=== PATIENT | female | born 1990 | race Caucasian/White ===

== ENCOUNTER 2020-02-07 09:55 | Outpatient (CLI) | payer OTHER, SELFPAY ==
[2020-02-07 10:16] VITALS: BP 146/83; PULSE 112
[2020-02-07 10:31] VITALS: BP 142/83; PULSE 101
[2020-02-07 10:33] LABS: Basophils Percent Auto 0.3 % (0.2-1.2); Eosinophils Absolute Auto 0.1 K/mm3 (0-0.3); Eosinophils Percent Auto 0.8 % (0-4.4); Hematocrit 34.3 % (37.0-47.0); Hemoglobin 11.3 g/dL (12.0-15.0); Immature Granulocyte Absolute 0.06 K/mm3 (0.00-0.031); Immature Granulocyte Percent A 0.6 % (0-0.5); Lymphocytes Absolute Auto 1.89 K/mm3 (0.9-3.2); Lymphocytes Percent Auto 19.2 % (18.3-44.2); Mean Corpuscular HGB Conc 32.9 g/dl (32-36); Mean Corpuscular Volume 85.1 fl (80-100); Mean Platelet Volume 9.9 fl (7.4-10.4); Monocytes Absolute Auto 0.8 K/mm3 (0.1-0.6); Monocytes Percent Auto 7.9 % (2.6-8.5); Neutrophils Percent Auto 71.2 % (45.5-73.1); Platelet Count Result 248 k/mm3 (150-375); Red Blood Count 4.03 M/mm3 (4.2-5.4); Red Cell Distribution Width 12.1 % (11.5-14.5); White Blood Count 9.8 K/mm3 (4.5-10.0)
[2020-02-07 10:43] LABS: Alanine Aminotransferase 11 U/L (4-35); Albumin Level 3.3 g/dL (3.5-5.1); Alkaline Phosphatase 137 U/L (38-126); Anion Gap 9 mmol/L (8-16); Aspartate Amino Transferase 20 U/L (14-36); Bilirubin,Total 0.3 mg/dL (0.2-1.3); Blood Urea Nitrogen 4 mg/dL (7-17); Calcium 9.2 mg/dL (8.4-10.2); Carbon Dioxide 22 mmol/L (22-30); Chloride 106 mmol/L (98-107); Estimated Glomerular Filt Rate > 60; Glucose 100 mg/dL (65-105); Potassium 4.1 mmol/L (3.4-5.0); Sodium 137 mmol/L (137-145)
[2020-02-07 10:46] VITALS: BP 139/81; PULSE 103
[2020-02-07 10:59] LABS: Add Urine Microscopic? YES; Appearance Urine Clear (Clear); Bacteria Urine Trace /hpf; Bilirubin Urine Negative (Negative); Blood Urine Negative (Negative); Color Urine Straw (Yellow); Glucose Urine UA Negative (Negative); Ketones Urine Negative (Negative); Leukocyte Esterase Ur Trace LEU/UL (NEGATIVE); Nitrate Urine Negative (Negative); Protein Urine Negative (Negative); RBC Urine 0-2 /hpf (0-2); Specific Grav Ur 1.008 (1.001-1.035); Squamous Epithelial Cell Urine Few /hpf (Few); Urobilinogen Urine Negative mg/dL (<2.0); WBC Urine 0-3 /hpf (0-3)
[2020-02-07 11:01] VITALS: BP 131/75; PULSE 97
[2020-02-07 11:07] LABS: Creatinine Urine 33.6 mg/dL; Total Protein Urine Random 14 mg/dL
--- NOTE | 2020-02-07 11:12 | PC.NURSE ---
Called Dr. Faye with lab results and BPs. August D/C home with 24hr urine.
[2020-02-07 11:36] VITALS: PULSE 102
== END 2020-02-07 11:22 | disposition home or self-care (01) ==
LOC: ANHOBOP 09:59 → ANHOBPP 10:00
PROVIDERS: PCP Internal Medicine; Visit Provider Student in an Organized Health Care Education/Training Program
DX: O13.9 Gestational [pregnancy-induced] hypertension without significant proteinuria, unspecified trimester (principal); Z3A.00 Weeks of gestation of pregnancy not specified
CPT/HCPCS: 36415; 59025; 80053; 81001; 82570; 84156; 84550; 85025; 87077; 87086; 87088; 87186; 99199

== ENCOUNTER 2020-02-08 12:19 | Outpatient (CLI) | payer OTHER, SELFPAY ==
[2020-02-08 12:50] VITALS: BP 121/76; PULSE 101
--- NOTE | 2020-02-08 13:08 | PC.NURSE ---
Sterile speculum exam performed. Whitish/ light yellow vaginal discharge noted. No pooling of fluid. No increase of fluid with coughing. Nitrazene negative. Slide prepared to check for ferning.
--- NOTE | 2020-02-08 13:09 | PC.NURSE ---
SVE- fingertip, thick, -2 station. No fluid noted in vagina when pressure applied against head.
--- NOTE | 2020-02-08 13:18 | PC.NURSE ---
Dr. Faye returned page and informed of pt c/o headache, spots in vision, and nausea. Pt also c/o leaking some fluid at 0530 this morning and again at 0630. We are out of ROM plus kits. Sterile speculum exam was performed- no pooling, nitrazene negative, slide prepared to check for ferning, but we don't have a microscope anymore. 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
[2020-02-08 13:30] VITALS: BP 131/77; PULSE 95; TEMP 36.4
[2020-02-08 13:36] VITALS: BMI 39.0
--- NOTE | 2020-02-08 13:36 | PC.NURSE ---
Dr. Faye in to see pt. Reviewed tracing and BP's. Order received for Tylenol. took microscope slide to office to view.
--- NOTE | 2020-02-08 13:40 | PC.NURSE ---
Dr. Faye called and stated the slide was negative for ferning. OK to discharge pt to home. Pt doesn't need to wait for 24 hr urine results.
[2020-02-08] MEDS: ACETAMINOPHEN 500 MG TABLET 1000 MG PO (13:44)
[2020-02-08 13:46] VITALS: BP 131/77; PULSE 115
[2020-02-08 14:14] LABS: Collection Time Urine 24 HOURS
[2020-02-08 14:25] LABS: Creatinine Urine 49.5 mg/dL; Patient Weight 220 Lbs
[2020-02-08 14:36] LABS: Creatinine Clearance Urine 207.4 ml/min (75-125); Specific Gravity Ur 1.005; Total Volume 24 Hour Urine 3500 ml
[2020-02-08 16:18] LABS: Total Protein Urine 24 Hr < 6 mg/24hr (0-149)
== END 2020-02-08 13:50 ==
LOC: ANHOBOP 13:26 → ANHOBPP 13:26
PROVIDERS: PCP Internal Medicine; Visit Provider Student in an Organized Health Care Education/Training Program
DX: O42.90 Premature rupture of membranes, unspecified as to length of time between rupture and onset of labor, unspecified weeks of gestation (principal); Z3A.00 Weeks of gestation of pregnancy not specified
CPT/HCPCS: 59025; 81050; 82575; 84156; 99199; A9270

== ENCOUNTER 2020-02-17 09:18 | Outpatient (RCR) | payer OTHER, SELFPAY ==
[2020-02-10 08:43] VITALS: BP 126/86; PULSE 115
[2020-02-13 09:48] VITALS: BP 131/80; PULSE 114
[2020-02-17 09:45] VITALS: BP 128/79; PULSE 99
== END 2020-03-20 09:56 | disposition home or self-care (01) ==
LOC: ANHOBOP 09:18
PROVIDERS: PCP Internal Medicine; Visit Provider Student in an Organized Health Care Education/Training Program
DX: O16.3 Unspecified maternal hypertension, third trimester (principal); Z3A.37 37 weeks gestation of pregnancy; Z3A.38 38 weeks gestation of pregnancy
CPT/HCPCS: 59025

== ENCOUNTER 2020-02-18 16:56 | Inpatient (IN) | payer OTHER, SELFPAY ==
[2020-02-18] VITALS (10 sets, daily range): BP systolic 127–145; BP diastolic 54–91; PULSE 104–128; TEMP 36.7; BMI 39.0
--- NOTE | 2020-02-18 17:22 | LDADM ---
This patient, Val Larsen, was admitted to Labor/Delivery/Recovery 108 on 02/18/20 at 16:56. Plans for labor, pain management and were discussed with patient. Patient/family oriented to hospital policies and general routines including ID bracelet, bed and alarms, visiting hours, pain management, procedures, bathroom and other care routines, personal items, smoking policy, room service/diet and guest tray routines, infant security routines, and visiting hours. Patient/Family are encouraged to report perceived risks to care and to ask questions if they do not understand what they are told or what they should do. See OBIX for further documentation.
[2020-02-18] MEDS: DINOPROSTONE 10 MG VAG INSERT VAGINAL (18:01)
[2020-02-18 18:10] LABS: Basophils Absolute Auto 0.1 K/mm3 (0.0-0.1); Basophils Percent Auto 0.5 % (0.2-1.2); Eosinophils Absolute Auto 0.1 K/mm3 (0-0.3); Eosinophils Percent Auto 0.8 % (0-4.4); Hematocrit 34.3 % (37.0-47.0); Hemoglobin 11.1 g/dL (12.0-15.0); Immature Granulocyte Absolute 0.09 K/mm3 (0.00-0.031); Immature Granulocyte Percent A 0.8 % (0-0.5); Lymphocytes Absolute Auto 2.48 K/mm3 (0.9-3.2); Lymphocytes Percent Auto 22.7 % (18.3-44.2); Mean Corpuscular HGB Conc 32.4 g/dl (32-36); Mean Corpuscular Hemoglobin 27.1 pg (26-34); Mean Corpuscular Volume 83.7 fl (80-100); Monocytes Percent Auto 9.3 % (2.6-8.5); Neutrophils Absolute Auto 7.2 K/mm3 (1.3-6.7); Neutrophils Percent Auto 65.9 % (45.5-73.1); Platelet Count Result 256 k/mm3 (150-375); Red Cell Distribution Width 12.4 % (11.5-14.5); White Blood Count 10.9 K/mm3 (4.5-10.0)
[2020-02-18] MEDS: CLINDAMYCIN 900 MG/D5W 50 ML 900 MG/50 ML PIGGYBACK 50 MG IVPB (18:40)
[2020-02-18 18:42] LABS: Alanine Aminotransferase 11 U/L (4-35); Albumin Level 3.5 g/dL (3.5-5.1); Alkaline Phosphatase 141 U/L (38-126); Anion Gap 9 mmol/L (8-16); Aspartate Amino Transferase 25 U/L (14-36); Bilirubin,Total 0.3 mg/dL (0.2-1.3); Blood Urea Nitrogen 8 mg/dL (7-17); Carbon Dioxide 22 mmol/L (22-30); Chloride 107 mmol/L (98-107); Estimated CRCL calculation 134 ml/min; Estimated Glomerular Filt Rate > 60; Glucose 83 mg/dL (65-105); Potassium 3.9 mmol/L (3.4-5.0); Sodium 138 mmol/L (137-145)
[2020-02-18] MEDS: ZOLPIDEM TARTRATE (*CRX) 5 MG TABLET PO (20:49)
[2020-02-18] MEDS: LABETALOL HCL 100 MG TABLET PO (20:49)
[2020-02-19] VITALS (127 sets, daily range): BP systolic 71–164; BP diastolic 36–85; PULSE 75–144; RESP 16–20; TEMP 36.6–37.1; O2SAT 97–100
--- NOTE | 2020-02-19 01:18 | WPDANESEPP ---
Anes - Eval Pre Procedure Procedure: Labor epidural Date/Time: 02/19/20 01:18 Surgeon: Yunier Preop Diagnosis: pain during labor Pre Op Diagnosis: Induction of Labor Patient Data Age: 29 Gender: F Height: 1.6 m Weight: 100 kg Last Vital Signs Temp 36.9 C 02/19/20 00:48 Pulse 114 H 02/19/20 01:00 BP 118/59 L 02/19/20 01:00 Allergies Allergy/AdvReac Type Severity Reaction Status Date / Time Penicillins Allergy Mild Rash Verified 02/02/20 12:30 Home Medications Medication Instructions Recorded Confirmed Type prenat.vits,diego,[id number] 1 tablet PO DAILY 02/02/20 02/18/20 History [ #2] ergocalciferol (vitamin D2) 50,000 unit PO WEEKLY 02/08/20 02/18/20 History [Vitamin D2] labetalol 100 mg PO BID 02/08/20 02/18/20 History Laboratory Tests 02/18/20 02/18/20 02/18/20 18:03 18:03 18:03 WBC 10.9 K/mm3 H K/mm3 (4.5-10.0) RBC 4.10 M/mm3 L M/mm3 (4.2-5.4) Hgb 11.1 g/dL L g/dL (12.0-15.0) Hct 34.3 % L % (37.0-47.0) MCV 83.7 fl fl (80-100) MCH 27.1 pg pg (26-34) MCHC 32.4 g/dl g/dl (32-36) RDW 12.4 % % (11.5-14.5) Plt Count 256 k/mm3 k/mm3 (150-375) MPV 10.0 fl fl (7.4-10.4) Immature Gran % (Auto) 0.8 % H % (0-0.5) Neut % (Auto) 65.9 % % (45.5-73.1) Lymph % (Auto) 22.7 % % (18.3-44.2) [place] % (Auto) 9.3 % H % (2.6-8.5) Eos % (Auto) 0.8 % % (0-4.4) Baso % (Auto) 0.5 % % (0.2-1.2) Lymph # (Auto) 2.48 K/mm3 K/mm3 (0.9-3.2) [place] # (Auto) 1.0 K/mm3 H K/mm3 (0.1-0.6) Eos # (Auto) 0.1 K/mm3 K/mm3 (0-0.3) Baso # (Auto) 0.1 K/mm3 K/mm3 (0.0-0.1) Abs Immat Gran (auto) 0.09 K/mm3 H K/mm3 (0.00-0.031) Absolute Neuts (auto) 7.2 K/mm3 H K/mm3 (1.3-6.7) Absolute Nucleated RBC 0.0 K/mm3 K/mm3 (0.0-0.012) Nucleated RBC % 0.0 % % (0.0-0.2) Sodium Potassium Chloride Carbon Dioxide Anion Gap BUN Creatinine Estim Creat Clear Calc Estimated GFR Glucose Calcium Total Bilirubin AST ALT Alkaline Phosphatase Total Protein Albumin RPR Pending Blood Type O Positive Antibody Screen Negative 02/18/20 18:03 WBC RBC Hgb Hct MCV MCH MCHC RDW Plt Count MPV Immature Gran % (Auto) Neut % (Auto) Lymph % (Auto) [place] % (Auto) Eos % (Auto) Baso % (Auto) Lymph # (Auto) [place] # (Auto) Eos # (Auto) Baso # (Auto) Abs Immat Gran (auto) Absolute Neuts (auto) Absolute Nucleated RBC Nucleated RBC % Sodium 138 mmol/L mmol/L (137-145) Potassium 3.9 mmol/L mmol/L (3.4-5.0) Chloride 107 mmol/L mmol/L (98-107) Carbon Dioxide 22 mmol/L mmol/L (22-30) Anion Gap 9 mmol/L mmol/L (8-16) BUN 8 mg/dL mg/dL (7-17) Creatinine 0.60 mg/dL L mg/dL (0.7-1.0) Estim Creat Clear Calc 134 ml/min ml/min Estimated GFR > 60 (59 - ) Glucose 83 mg/dL mg/dL (65-105) Calcium 10.0 mg/dL mg/dL (8.4-10.2) Total Bilirubin 0.3 mg/dL mg/dL (0.2-1.3) AST 25 U/L U/L (14-36) ALT 11 U/L U/L (4-35) Alkaline Phosphatase 141 U/L H U/L (38-126) Total Protein 7.0 g/dL g/dL (6.3-8.2) Albumin 3.5 g/dL g/dL (3.5-5.1) RPR Blood Type Antibody Screen Patient hx anesthesia problems: none Family hx anesthesia problems: none PMFSH Past Medical History Medical History (Updated 02/19/20 @ 01:20 by Terese Spencer CRNA) IUP (intrauterine ), incidental Obesity (BMI
[2020-02-19] MEDS: CLINDAMYCIN 900 MG/D5W 50 ML 900 MG/50 ML PIGGYBACK 50 MG IVPB ×2 (02:52→10:38)
[2020-02-19] MEDS: LACTATED RINGERS 1,000 ML 125 ML IV CONT ×2 (05:25→08:14)
[2020-02-19] MEDS: OXYTOCIN 30 UNITS/NS 500 ML 30 UNITS/500 ML BAG IV CONT (05:26)
[2020-02-19 07:10] LABS: Uric Acid 4.5 mg/dL (2.5-7.5)
--- NOTE | 2020-02-19 07:51 | PM.IMHP ---
H&P: HPI History of Present Illness Date/Time: 02/19/20 07:51 Chief complaint: Induction of Labor Narrative: Val Larsen is a 29 year old female 0-1 whose last menstrual period was 05/22/2019 EDC is 03/02/2020, presents at 37 and 6 7 weeks gestation for induction of labor. She has elevated blood pressures has been on labetalol she is spilling protein and mild headaches. In light of her early visit confirming dates and worsening blood pressures she is admitted for induction of labor. She is positive for group B strep in her urine and has been treated as such. Review of Systems Review of Systems: All systems reviewed & are unremarkable except as noted in HPI and below PMFSH Past Medical History Medical History IUP (intrauterine ), incidental Obesity (BMI 30-39.9) PIH ( induced hypertension) Family History Family History Mother Diabetes mellitus Grandparent Breast cancer Grandparent Lung cancer Social History Social History Smoking status: Never smoker Substance use: never Spiritual care concerns: No Meds Home Medications and Allergies Home Medications Medication Instructions Recorded Confirmed Type prenat.vits,diego,yac-[id number]-lziwt 1 tablet PO DAILY 02/02/20 02/18/20 History [ #2] ergocalciferol (vitamin D2) 50,000 unit PO WEEKLY 02/08/20 02/18/20 History [Vitamin D2] labetalol 100 mg PO BID 02/08/20 02/18/20 History Allergies Allergy/AdvReac Type Severity Reaction Status Date / Time Penicillins Allergy Mild Rash Verified 02/02/20 12:30 Vital Signs Vital Signs - 24 hr 02/18/20 18:33 02/18/20 18:39 02/18/20 18:45 Temperature 98.1 F Pulse Rate 121 H 117 H Respiratory Rate Blood Pressure 131/79 144/91 H 02/18/20 19:00 02/18/20 19:15 02/18/20 19:30 Temperature Pulse Rate 128 H 122 H 107 H Respiratory Rate Blood Pressure 142/91 H 132/76 127/54 L 02/18/20 19:45 02/18/20 20:00 02/18/20 22:17 Temperature Pulse Rate 104 H 108 H 110 H Respiratory Rate Blood Pressure 128/61 129/66 133/71 02/18/20 23:00 02/19/20 00:00 02/19/20 00:48 Temperature 98.4 F Pulse Rate 118 H 121 H Respiratory Rate Blood Pressure 145/82 H 143/85 H 02/19/20 01:00 02/19/20 02:00 02/19/20 02:52 Temperature 97.8 F Pulse Rate 114 H 114 H Respiratory Rate 20 Blood Pressure 118/59 L 133/79 02/19/20 03:00 02/19/20 04:49 02/19/20 05:00 Temperature 98 F Pulse Rate 120 H 114 H 113 H Respiratory Rate Blood Pressure 138/79 145/77 H 140/81 02/19/20 05:30 02/19/20 05:45 02/19/20 06:00 Temperature Pulse Rate 115 H 120 H 112 H Respiratory Rate Blood Pressure 140/75 116/64 124/73 02/19/20 06:15 02/19/20 06:30 02/19/20 06:45 Temperature Pulse Rate 114 H 139 H 107 H Respiratory Rate Blood Pressure 133/78 127/67 148/69 H 02/19/20 07:00 02/19/20 07:15 02/19/20 07:30 Temperature Pulse Rate 115 H 115 H 102 H Respiratory Rate Blood Pressure 138/73 130/75 126/73 02/19/20 07:45 Temperature Pulse Rate 107 H Respiratory Rate Blood Pressure 127/70 Exam Const: General: no acute distress Eyes: General: appearance normal, both eyes and all related structures Neck: Neck: supple and no JVD Thyroid: thyroid normal Resp: Effort & Inspection: normal respiratory effort Auscultation: clear to auscultation bilaterally Cardio: Rate: regular rate Rhythm: regular rhythm GI: Inspection: non-distended GI Palp: Yes Soft to palpation, No Tenderness to palpation present (GI) and No Guarding due to palpation present (GI) Auscultation: normal bowel sounds : General: Yes other ( Cervix 2-3/ thick /-2. AROM clear. FHTs were reassuring) Skin: General skin exam: no rashes or lesions noted Extrem: General: normal to
--- NOTE | 2020-02-19 12:26 | PM.OBPNVD ---
OB - PN: Subj Subjective Date/time seen: 02/19/20 12:26 Interval history: cx 9 cm by rn exam fhts ok OB - PN: Obj Data Labs CBC & Chem 7: 02/18/20 18:03 02/18/20 18:03 Labs: Laboratory Results - last 24 hr 02/18/20 02/18/20 02/18/20 18:03 18:03 18:03 WBC 10.9 H RBC 4.10 L Hgb 11.1 L Hct 34.3 L MCV 83.7 MCH 27.1 MCHC 32.4 RDW 12.4 Plt Count 256 MPV 10.0 Immature Gran % (Auto) 0.8 H Neut % (Auto) 65.9 Lymph % (Auto) 22.7 [place] % (Auto) 9.3 H Eos % (Auto) 0.8 Baso % (Auto) 0.5 Lymph # (Auto) 2.48 [place] # (Auto) 1.0 H Eos # (Auto) 0.1 Baso # (Auto) 0.1 Abs Immat Gran (auto) 0.09 H Absolute Neuts (auto) 7.2 H Absolute Nucleated RBC 0.0 Nucleated RBC % 0.0 Sodium Potassium Chloride Carbon Dioxide Anion Gap BUN Creatinine Estim Creat Clear Calc Estimated GFR Glucose Uric Acid 4.5 Calcium Total Bilirubin AST ALT Alkaline Phosphatase Total Protein Albumin Blood Type O Positive Antibody Screen Negative 02/18/20 18:03 WBC RBC Hgb Hct MCV MCH MCHC RDW Plt Count MPV Immature Gran % (Auto) Neut % (Auto) Lymph % (Auto) [place] % (Auto) Eos % (Auto) Baso % (Auto) Lymph # (Auto) [place] # (Auto) Eos # (Auto) Baso # (Auto) Abs Immat Gran (auto) Absolute Neuts (auto) Absolute Nucleated RBC Nucleated RBC % Sodium 138 Potassium 3.9 Chloride 107 Carbon Dioxide 22 Anion Gap 9 BUN 8 Creatinine 0.60 L Estim Creat Clear Calc 134 Estimated GFR > 60 Glucose 83 Uric Acid Calcium 10.0 Total Bilirubin 0.3 AST 25 ALT 11 Alkaline Phosphatase 141 H Total Protein 7.0 Albumin 3.5 Blood Type Antibody Screen OB - PN A/P Time Spent With Patient Time: Total time spent is greater than 50% in coordination of care (as documented) at patient's floor/unit and/or counseling patient:
[2020-02-19 12:29] LABS: Rapid Plasma Reagin Non-Reactive (NonReactive)
--- NOTE | 2020-02-19 13:29 | PM.OBPRVD ---
OB - Delivery Note Procedure Delivery date: 02/19/20 Procedure: mil events: Induced HTN and Labor Induction Intrapartal events: None Induction method: per cervidil protocol Delivery augmentation: rupture of membranes and pitocin Delivery monitor: external FHT Route of delivery: Laceration Description: None Specimen: No Estimated blood loss (mL): 57 Anesthesia type: Epidural Disposition: floor Complications: clinda x 3 gbs Baby Date of : 02/19/20 Time of : 13:21 Weeks of gestation at delivery: 38 gender: Female Weight (pounds): 7 Weight (ounces): 9 presentation: vertex position: Right Occiput Anterior Placenta delivery description: Spontaneous cord vessel description: 3 Vessels score one minute: 8 score five minutes: 9
[2020-02-19] MEDS: OXYTOCIN 30 UNITS/NS 500 ML 30 UNITS/500 ML BAG 125 UNITS IV CONT (13:49)
[2020-02-19] MEDS: ACETAMINOPHEN 325 MG TABLET 650 MG PO (15:16)
[2020-02-19] MEDS: BENZOCAINE 20% AER SPR (*SP) 56 GM CAN 1 SPRAY TOPICAL (15:16)
[2020-02-19] MEDS: WITCH HAZEL 40 PADS 1 PAD TOPICAL (15:16)
--- NOTE | 2020-02-19 17:45 | OBPPTRN ---
1600 Patient transferred to post room #283 via W/C. Support person present. Oriented to unit, room, information board, rooming in, admission packet and security measures. Patient verbalizes understanding.
[2020-02-20] MEDS: IBUPROFEN 600 MG TABLET PO ×2 (00:26→12:28)
[2020-02-20 05:42] LABS: Hemoglobin 10.2 g/dL (12.0-15.0)
[2020-02-20] MEDS: DOCUSATE SODIUM 100 MG CAPSULE PO (07:19)
[2020-02-20] MEDS: MULTIVIT/MIN/PREN/FOL AC/IRON TABLET 1 TAB PO (07:19)
--- NOTE | 2020-02-20 07:42 | PM.OBPNVD ---
OB - PN: Subj Subjective Date/time seen: 02/20/20 07:42 Interval history: cx 9 cm by rn exam fhts ok Patient comments: no complaints and pain well controlled baby status: doing well and nursing well OB - PN: Obj Data Labs CBC & Chem 7: 02/20/20 04:58 02/18/20 18:03 Labs: Laboratory Results - last 24 hr 02/18/20 02/20/20 18:03 04:58 Hgb 10.2 L Hct 32.0 L RPR Non-reactive OB - PN A/P Plan day: 1 Plan: routine care Time Spent With Patient Time: Total time spent is greater than 50% in coordination of care (as documented) at patient's floor/unit and/or counseling patient: Time with patient: less than 15 minutes Review of Systems Review of Systems: All systems reviewed & are unremarkable except as noted in HPI and below Exam Const: General: no acute distress Eyes: General: appearance normal, both eyes and all related structures Neck: Neck: supple and no JVD Thyroid: thyroid normal Resp: Effort & Inspection: normal respiratory effort Auscultation: clear to auscultation bilaterally Cardio: Rate: regular rate Rhythm: regular rhythm GI: Inspection: non-distended GI Palp: Yes Soft to palpation, No Tenderness to palpation present (GI) and No Guarding due to palpation present (GI) Auscultation: normal bowel sounds : General: Yes bladder normal to palpation External Female Exam: normal external appearance Speculum Exam - Vagina: normal vaginal discharge and No vaginal bleeding Speculum Exam - Cervix: nontender Bimanual exam- vagina & uterus: bladder normal to palpation and No Cervical tenderness present OB/external & speculum: No vaginal bleeding Skin: General skin exam: no rashes or lesions noted Extrem: General: normal to inspection and no edema Psych: Mental Status: mental status grossly normal Affect: normal affect
[2020-02-20 07:45] VITALS: BP 123/79; PULSE 80; RESP 18; TEMP 36.6; O2SAT 98
--- NOTE | 2020-02-20 10:15 | PC.NURSE ---
Mother called out for questions concerning . Mother states she has had difficulties with latch and would like to pump and bottle feed using formula/EBM for feedings. Offered to assist with latch, mother declines and states she prefers pumping. Mother has her own Medela pump assisted with set up. Instructions given on breast pump care and usage, pumping schedule, nipple care, and collection and storage of breast milk. Encouraged [id number], breast massage and manual expression to stimulate supply. Assessed patient for correct flange size, placement and draw. Patient verbalizes and demonstrates understanding of instructions.
--- NOTE | 2020-02-20 13:46 | WPDANLDPN2 ---
Anes-Prog Note L&D Date/Time: 02/20/20 13:46 Comfortable throughout: labor and delivery Neuraxial method: epidural Epidural/Spinal procedure site: clean & non-tender Neuro status: Neuro function grossly intact. Cardiovascular status: normal Respiratory status: normal Airway patency: baseline Mental status: baseline Post-Op hydration status: normal Vital Signs: Last Vital Signs Temp 36.6 C 02/20/20 07:45 Pulse 80 02/20/20 07:45 Resp 18 02/20/20 07:45 BP 123/79 02/20/20 07:45 Pulse Ox 98 02/20/20 07:45 Pain score (VAS): 04/14 I/O: Intake & Output 02/19/20 02/20/20 02/20/20 23:59 07:59 15:59 Intake Total 500 Balance 500 Post-procedural complaints: none Patient feedback: Patient satisfied with anesthetic care.
[2020-02-20 20:00] VITALS: BP 106/73; PULSE 75; RESP 18; TEMP 36.4; O2SAT 98
--- NOTE | 2020-02-21 06:46 | PM.DS ---
DS: Admitting Diagnosis Admitting Diagnosis Admitting Diagnosis: Induction of Labor Gestational hypertension Chronic hypertension DS: Summary Time Spent with Patient Time attestation: Total time spent providing and/or coordinating discharge services: patient was admitted and underwent spontaneous vaginal delivery. Her blood pressures remained stable . She was treated for known group B strep and watch for 48 hours. Exam Const: General: no acute distress Eyes: General: appearance normal, both eyes and all related structures Neck: Neck: supple and no JVD Thyroid: thyroid normal Resp: Effort & Inspection: normal respiratory effort Auscultation: clear to auscultation bilaterally Cardio: Rate: regular rate Rhythm: regular rhythm GI: Inspection: non-distended GI Palp: Yes Soft to palpation, No Tenderness to palpation present (GI) and No Guarding due to palpation present (GI) Auscultation: normal bowel sounds : General: Yes bladder normal to palpation External Female Exam: normal external appearance Speculum Exam - Vagina: normal vaginal discharge and No vaginal bleeding Speculum Exam - Cervix: nontender Bimanual exam- vagina & uterus: bladder normal to palpation and No Cervical tenderness present OB/external & speculum: No vaginal bleeding Skin: General skin exam: no rashes or lesions noted Extrem: General: normal to inspection and no edema Psych: Mental Status: mental status grossly normal Affect: normal affect Discharge Plan Discharge Attending physician on discharge: Adi Bey Discharging Clinician: Adi Bey Patient Disposition: Home, Self-Care Activity: may shower, no straining, may drive after 2 weeks and pelvic rest Diet: heart healthy Patient Instructions: Antibiotic Form Stand Alone Forms: General Discharge Information Follow-up/Referrals: Montana Faye MD [Physician] - Discharge Medications: Continued ergocalciferol (vitamin D2) [Vitamin D2] 1,250 mcg (50,000 unit) Capsule 50,000 unit PO WEEKLY RF: 0 labetalol 100 mg tablet 100 mg PO BID RF: 0 #2 Tablet 1 tablet PO DAILY RF: 0 Date of admission: 02/18/20 16:56 Primary Care Provider: Goran Nayak Admitting Provider: Montana Faye Attending physician on admission: Montana Faye Condition: Stable
--- NOTE | 2020-02-21 06:49 | P.PNOB_ITS ---
OB - PN: Subj Subjective Date/time seen: 02/21/20 06:49 Interval history: cx 9 cm by rn exam fhts ok Patient comments: no complaints and pain well controlled baby status: doing well and nursing well OB - PN: Obj Data Labs CBC & Chem 7: 02/20/20 04:58 02/18/20 18:03 OB - PN A/P Plan day: 2 Plan: routine care, discharge home and follow up 6 weeks Time Spent With Patient Time: Total time spent is greater than 50% in coordination of care (as documented) at patient's floor/unit and/or counseling patient: Time with patient: less than 15 minutes Review of Systems Review of Systems: All systems reviewed & are unremarkable except as noted in HPI and below Exam Const: General: no acute distress Eyes: General: appearance normal, both eyes and all related structures Neck: Neck: supple and no JVD Thyroid: thyroid normal Resp: Effort & Inspection: normal respiratory effort Auscultation: clear to auscultation bilaterally Cardio: Rate: regular rate Rhythm: regular rhythm GI: Inspection: non-distended GI Palp: Yes Soft to palpation, No Tenderness to palpation present (GI) and No Guarding due to palpation present (GI) Auscultation: normal bowel sounds : General: Yes bladder normal to palpation External Female Exam: normal external appearance Speculum Exam - Vagina: normal vaginal discharge and No vaginal bleeding Speculum Exam - Cervix: nontender Bimanual exam- vagina & uterus: bladder normal to palpation and No Cervical tenderness present OB/ext ernal & speculum: No vaginal bleeding Skin: General skin exam: no rashes or lesions noted Extrem: General: normal to inspection and no edema Psych: Mental Status: mental status grossly normal Affect: normal affect
[2020-02-21 08:30] VITALS: BP 132/69; PULSE 75; RESP 18; TEMP 36.9; O2SAT 99
[2020-02-21] MEDS: MULTIVIT/MIN/PREN/FOL AC/IRON TABLET 1 TAB PO (08:38)
--- NOTE | 2020-02-21 09:00 | PC.NURSE ---
Mother continues to pump without difficulties or discomfort. Mother is feeding as required and waking infant to feed if needed. is currently meeting outcomes for weight, output, jaundice and feeding frequencies. Mother states she feels confident to continue current feeding plan at home. Reviewed transition to breast milk, signs of adequate intake, and engorgement/relief. Instructed to call ICP if intake/output less than required. Reviewed regular medications mother is taking. Information provided per Lali. Reviewed community resources on the [email or web address] website and in the Mom/Baby guide. Information on outpatient services provided. Mother has no further questions at this time.
--- NOTE | 2020-02-21 09:54 | WPDANLDPN2 ---
Anes-Prog Note L&D Date/Time: 02/21/20 09:54 Comfortable throughout: labor and delivery Neuraxial method: epidural Epidural/Spinal procedure site: clean & non-tender Neuro status: Neuro function grossly intact. Cardiovascular status: normal Respiratory status: normal Airway patency: baseline Mental status: baseline Post-Op hydration status: normal Vital Signs: Last Vital Signs Temp 36.9 C 02/21/20 08:30 Pulse 75 02/21/20 08:30 Resp 18 02/21/20 08:30 BP 132/69 02/21/20 08:30 Pulse Ox 99 02/21/20 08:30 Pain score (VAS): 0 Post-procedural complaints: none Patient feedback: Patient satisfied with anesthetic care.
[2020-02-23 11:04] VITALS: BP 138/83; PULSE 81; RESP 14
== END 2020-02-21 10:28 | disposition home or self-care (01) | DRG 807 ==
LOC: ANHOB2 02-21 07:31 → ANHLDR 02-22 17:12 → ANHOB2 02-22 17:12
PROVIDERS: Admitting Provider Student in an Organized Health Care Education/Training Program; PCP Internal Medicine; Visit Provider Obstetrics & Gynecology
DX: O10.92 Unspecified pre-existing hypertension complicating childbirth (principal); Z37.0 Single live birth; O99.824 Streptococcus B carrier state complicating childbirth; O76 Abnormality in fetal heart rate and rhythm complicating labor and delivery; Z3A.37 37 weeks gestation of pregnancy
CPT/HCPCS: 36415; 80053; 84550; 85014; 85018; 85025; 86592; 86850; 86900; 86901; A9270; J2590; J2795; J7120